=== PATIENT | male | born 1960 | race African-American/Black ===

== ENCOUNTER 2024-09-26 17:44 | Emergency (ER) | payer MEDICARE, SELFPAY ==
--- NOTE | ~2024-09-26 | XR_ITS ---
CLINICAL HISTORY: WEAKNESS 2 view chest x-ray Comparison: None Findings: No consolidation or effusion. Left subclavian AICD. Heart size normal. No acute fracture. IMPRESSION: 1. No acute findings. This document has been electronically signed by: Sri Manjarrez MD on 09/26/2024 18:45:19
[2024-09-26 17:59] VITALS: BP 117/82; PULSE 113; O2SAT 96
[2024-09-26 18:04] VITALS: BP 124/80; PULSE 109; RESP 16; TEMP 39.2; O2SAT 98; BMI 22.5
[2024-09-26] MEDS: Ibuprofen 600 MG TABLET PO (18:09)
--- NOTE | 2024-09-26 18:10 | ECG_ITS ---
Test Reason : cp Blood Pressure : */* mmHG Vent. Rate : 110 BPM Atrial Rate : 110 BPM P-R Int : 140 ms QRS Dur : 82 ms QT Int : 316 ms P-R-T Axes : 76 30 63 degrees QTcB Int : 427 ms Sinus tachycardia T wave abnormality, consider anterolateral ischemia Abnormal ECG No previous ECGs available Referred By: Acacia Moreno Electronically Signed By: BHAVNA BONNER MD
--- NOTE | 2024-09-26 18:19 | ED_ITS ---
HPI - Weakness General Chief complaint: Weakness Stated complaint: weakness Time Seen by Provider: 09/27/24 04:47 Source: patient Mode of arrival: ambulatory Limitations: no limitations History of Present Illness ED Provider: Dr. Effie Mazariegos HPI Narrative: Patient comes to the emergency room complaining of weakness for 3 days, cough, generalized malaise Related Data Previous Rx's ?Medication ?Instructions ?Recorded acetaminophen 500 mg tablet 500 mg PO Q6H PRN fever or pain 09/27/24 #20 tabs ibuprofen 600 mg tablet 600 mg PO TID PRN fever or pain 09/27/24 #20 tabs Allergies Allergy/AdvReac Type Severity Reaction Status Date / Time penicillin V Allergy Unknown Rash Verified 09/26/24 18:06 Review of Systems 2 Review of Systems: Constitutional : No Weight loss, No Fever, No Chills, No Night Sweats, complaining of fatigue and generalized malaise ENT/Mouth : No Hearing loss, No Ear Pain, No Nasal Congestion, No Sinus Pain, No Hoarseness, No sore throat, No Rhinorrhea, No Swallowing Difficulty Eyes: No Eye Pain, No Swelling, No Redness, No Foreign Body, No Discharge, No Vision Changes Cardiovascular : No Chest Pain, No SOB, No Dyspnea on Exertion, No Orthopnea, No Edema, No Palpitations Respiratory : Complaining of dry cough, No Sputum, No Wheezing, No Smoke Exposure, No Dyspnea Gastrointestinal : No Nausea, No Vomiting, No Diarrhea, No Constipation, No abdominal Pain, No Hematochezia, No Melena Genitourinary : no irregular bleeding, No Dysuria, No Urinary Frequency, No Hematuria, No Urinary Incontinence, No Urgency, No Flank Pain, No Urinary Flow Changes, No Hesitancy Musculoskeletal : No joint pain, No Myalgias, No Joint Swelling Skin : No Skin Lesions, No rash Neuro : No Weakness, No Numbness, No Paresthesias, No Loss of Consciousness, No Dizziness, No Headache Psych : No Anxiety/Panic, No Depression, No SI/HI/AH/VH, No Social Issues, Heme/Lymph: No Bruising, No Bleeding,No Lymphadenopathy Endocrine : No Polyuria, No Polydipsia, No Temperature Intolerance PMFSH Social History Social History Smoked in Last 30 Days: No Use of substances other than those prescribed or required for medical reasons: No Do you have a plan to hurt others: No Plan Physical Exam 2 Vital Signs: Vital Signs: Last Vital Signs Temp 97.8 F 09/27/24 02:38 Pulse 78 09/27/24 02:38 Resp 16 09/27/24 02:38 BP 90/54 L 09/27/24 02:38 Pulse Ox 99 09/27/24 02:38 O2 Del Method Room Air 09/27/24 02:38 BMI result Body Mass Index 22.5 Const: Other: Appearance: Alert. Oriented X3. No acute distress. Eyes: Pupils equal, round and reactive to light. ENT: Pharynx normal. Neck: Normal inspection. Neck supple. No lymph nodes noted. No crepitus CVS: Normal heart rate and rhythm. Pulses normal. Normal S1 and S2 Respiratory: No respiratory distress. Breath sounds normal. No Wheezing. No rales Abdomen: Soft and nontender. No rigidity. No distention. Skin: Skin warm and dry. Normal skin color. Normal skin turgor. Extremities: No lower extremity edema. No Lacerations. No Rash Neuro: Oriented X 3. No motor deficit. No sensory deficit. Moving all extremities. No slurred speech. CN 2 through 12 grossly intact Psych: calm, cooperative, normal affect Course Course Course Narrative: This is a Rapid Medical Examination (RME) performed by Kristie Moreno PA-C in triage. Full HPI, ROS, assessment and treatment plan per primary provider in the Main ED. 64 yo male here for eval of generalized weakness x3 days. reports family at home w/ flu like symptoms. denies fever, chills, N/V/D, cough. Plan: labs, viral swabs, ekg, cxr Medications Administered Discontinued Medications Generic Name Dose Route Start Last Admin Trade Name Freq PRN Reason Stop Dose Admin Ibuprofen 600 mg 09/26/24 18:04 09/26/24 18:09 Ibuprofen 600 Mg Tablet PO 09/26/24 18:05 600 mg ONCE ONE Administration Medical Decision Making Medical Decision Making [facility] Narrative: My interpretation of labs: Patient's white blood cell count 11.8, likely reactive leukocytosis, normal chemistry, magnesium 1.4, repleted p.o. in the emergency room. Patient's LFTs are slightly bumped but it is chronic and at baseline for the patient. Patient's influenza test positive I discussed with the patient treating the influenza with or without Tamiflu. Since patient has been symptomatic for over 3 days now, patient decided that we will treat his symptoms only, no Tamiflu. Differential Diagnosis Differential Diagnoses: The differential diagnosis associated with the presentation includes (Influenza, COVID, viral URI) Lab Data MDM Lab Attestation statement: I reviewed the patient's lab results. 09/26/24 18:33 09/26/24 18:33 Labs: Lab Results 09/26/24 Range/Units 18:33 WBC 11.8 H (4.8-10.8) X10*3/uL RBC 4.18 L (4.60-5.80) X10*6/uL Hgb 12.5 L (14.0-18.0) g/dl Hct 34.8 L (42.0-52.0) % MCV 83.3 (80.0-98.0) fL MCH 29.9 (27.0-33.0) pg MCHC 35.9 (31.0-36.0) g/dl RDW 15.8 (11.0-16.0) % Plt Count 160 (160-400) X10*3/uL MPV 9.8 (9.4-12.4) fL Immature Gran % (Auto) 0.3 (0.0-0.4) % Neut % (Auto) 78.4 H (45-73) % Lymph % (Auto) 12.4 L (20-40) % [place] % (Auto) 8.7 (2-11) % Eos % (Auto) 0.0 (0-4) % Baso % (Auto) 0.2 (0-2) % Lymph # (Auto) 1.5 (1.2-4.9) X10*3/uL [place] # (Auto) 1.0 (0.1-1.2) X10*3/uL Eos # (Auto) 0.0 (0.0-0.4) X10*3/uL Baso # (Auto) 0.0 (0.0-0.2) X10*3/uL Abs Immat Gran (auto) 0.04 H (0.00-0.03) X10*3/uL Absolute Neuts (auto) 9.3 H (2.0-8.3) x10*3/uL Absolute Nucleated RBC 0.000 (0.0-0.012) X10*3/uL Nucleated RBC % (auto) 0.0 (0.0-0.2) /100WBC Smear Tech's Comments VERIFIED Sodium 136 (135-145) mmol/L Potassium 3.7 (3.3-5.1) mmol/L Chloride 107 (96-108) mmol/L Carbon Dioxide 19 L (22-29) mmol/L Anion Gap 14 (12-20) BUN 18 H (9-16) mg/dL Creatinine 1.18 (0.5-1.4) mg/dL Estim Creat Clear Calc 54.0 Estimated GFR > 60 Random Glucose 97 (60-115) mg/dL Calcium 8.4 (8.4-10.2) mg/dL Magnesium 1.4 L* (1.6-2.6) mg/dL Total Bilirubin 0.5 (0.0-1.0) mg/dL AST 62 H (5-37) U/L ALT 44 H (0-40) U/L Alkaline Phosphatase 131 H (39-117) U/L Troponin I High Sens 28.2 (<3.5-35.0) ng/L Total Protein 7.2 (6.5-8.0) g/dL Albumin 3.8 (3.5-5.0) g/dL Influenza Type A (PCR) POSITIVE A (Negative) Influenza Type B (PCR) NEGATIVE (Negative) RSV RNA Qual (PCR) NEGATIVE (Negative) SARS-CoV-2 RNA (RT-PCR) NEGATIVE (Negative) Discharge Plan Discharge Clinical Impression: Influenza A Patient Disposition: Home, Self-Care Instructions: Influenza (ED) Additional Instructions: Please follow-up with your primary care physician tomorrow. If you have any worsening or new symptoms, please return to the emergency room or call 911 Prescriptions: New ibuprofen 600 mg tablet 600 mg PO TID PRN (Reason: fever or pain) Qty: 20 0RF acetaminophen 500 mg tablet 500 mg PO Q6H PRN (Reason: fever or pain) Qty: 20 0RF Print Language: Montenegrin
[2024-09-26 18:40] LABS: Basophils Percent Auto 0.2 % (0-2); Hematocrit 34.8 % (42.0-52.0); Imm Gran Abs Auto 0.04 X10*3/uL (0.00-0.03); Imm Gran Pct Auto 0.3 % (0.0-0.4); Lymphocytes Absolute Auto 1.5 X10*3/uL (1.2-4.9); Lymphocytes Percent Auto 12.4 % (20-40); MANUAL DIFF FLAG SCAN; Mean Corpuscular Volume 83.3 fL (80.0-98.0); Mean Platelet Volume 9.8 fL (9.4-12.4); Monocytes Percent Auto 8.7 % (2-11); Neutrophils Absolute Auto 9.3 x10*3/uL (2.0-8.3); Neutrophils Percent Auto 78.4 % (45-73); Platelet Count 160 X10*3/uL (160-400); Red Blood Count 4.18 X10*6/uL (4.60-5.80); Red Cell Distribution Width 15.8 % (11.0-16.0); SCAN SMEAR FLAG 1; White Blood Count 11.8 X10*3/uL (4.8-10.8)
[2024-09-26 19:01] LABS: Alanine Aminotransferase 44 U/L (0-40); Albumin Level 3.8 g/dL (3.5-5.0); Alkaline Phosphatase 131 U/L (39-117); Anion Gap 14 (12-20); Aspartate Amino Transferase 62 U/L (5-37); Bilirubin Total 0.5 mg/dL (0.0-1.0); Blood Urea Nitrogen 18 mg/dL (9-16); Calcium 8.4 mg/dL (8.4-10.2); Carbon Dioxide 19 mmol/L (22-29); Chloride 107 mmol/L (96-108); Estimated Glomerular Filt Rate > 60; Glucose Random 97 mg/dL (60-115); Magnesium 1.4 mg/dL (1.6-2.6); Potassium 3.7 mmol/L (3.3-5.1); Sodium 136 mmol/L (135-145); Total Protein 7.2 g/dL (6.5-8.0)
[2024-09-26 19:02] LABS: Troponin-I High Sensitivity 28.2 ng/L (<3.5-35.0)
[2024-09-26 19:09] LABS: Hemoglobin 12.5 g/dl (14.0-18.0)
[2024-09-26 19:10] LABS: Mean Corpuscular HGB Conc 35.9 g/dl (31.0-36.0); Mean Corpuscular Hemoglobin 29.9 pg (27.0-33.0)
[2024-09-26 19:12] LABS: SLIDE REVIEW VERIFIED
[2024-09-26 19:16] LABS: Influenza A PCR POSITIVE (Negative); Influenza B PCR NEGATIVE (Negative); Resp Syncy Virus RNA Qual PCR NEGATIVE (Negative); SARS COV2 PCR INHOUSE NEGATIVE (Negative)
[2024-09-27 00:44] VITALS: BP 96/65; PULSE 81; RESP 14; TEMP 36.8; O2SAT 100
[2024-09-27 02:38] VITALS: BP 90/54; PULSE 78; RESP 16; TEMP 36.6; O2SAT 99
[2024-09-27] MEDS: Magnesium Oxide 400 MG TABLET 800 MG PO (05:27)
[2024-09-27 05:28] VITALS: BP 101/71; PULSE 80; RESP 16; TEMP 36.6; O2SAT 97
[2024-09-27 05:31] VITALS: BP 101/71; PULSE 80; RESP 16; TEMP 36.6; O2SAT 97
== END 2024-09-27 05:32 | disposition home or self-care (01) ==
PROVIDERS: Physician Assistant Medical; Emergency Provider Emergency Medicine
DX: J10.1 Influenza due to other identified influenza virus with other respiratory manifestations (principal); R53.1 Weakness; R05.9 Cough, unspecified; R00.0 Tachycardia, unspecified; R07.89 Other chest pain; Z79.899 Other long term (current) drug therapy; Z03.818 Encounter for observation for suspected exposure to other biological agents ruled out
CPT/HCPCS: 0241U; 71046; 80053; 83735; 84484; 85025; 93005; 99284; 99285

== ENCOUNTER → 2024-09-26 18:10 | Outpatient (BNV) | payer OTHER, SELFPAY | PROVIDERS: Visit Provider Radiology Diagnostic Radiology | DX: R53.1 Weakness (principal) | CPT/HCPCS: 71046 ==